=== PATIENT | female | born 1960 | race Caucasian/White ===

== ENCOUNTER 2016-06-02 11:18 | Emergency (ER) | payer OTHER ==
[~2016-06-02] VITALS: Ht 162.6 cm; Wt 136.7 kg
[~2016-06-02 11:18] MED LIST: ALBUAER2 INH; DIFL500T PO; FRS/40 PO; LSX20 PO; POTA20TA16 PO; SUMA50TA15 PO
[2016-06-02 11:21] VITALS: TEMP 36.8; Ht 162.6 cm; Wt 136.7 kg
[2016-06-02] MEDS ORDERED: PRVHFAIN INH (11:43)
[2016-06-02] MEDS ORDERED: LSX20 PO (11:43)
--- NOTE | 2016-06-02 12:08 | DIAGNOSTIC IMAGING REPORT ---
RIGHT KNEE 3 VIEWS, LEFT KNEE 3 VIEWS CLINICAL HISTORY: Bilateral knee pain. Fall. COMPARISON STUDY: None. FINDINGS: Mild anterior soft tissue swelling. No knee effusions. No fracture or dislocation within the right or left knee. Mild patellofemoral osteoarthritis bilaterally. Medial and lateral osteophytes within the left knee with mild cartilage space narrowing within the medial compartment of the left knee. This is consistent with degenerative change. IMPRESSION: No fracture or dislocation within the right or left knee. Bilateral knee osteoarthritis, left greater than right. Electronically signed by: Yony Diaz M.D. 06/02/2016 12:07 PM Dictated Date/Time: 06/02/2016 12:04 PM
[2016-06-02 12:51] VITALS: BP 157/106; PULSE 82; O2SAT 98
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
== END 2016-06-02 13:05 | disposition home or self-care (01) ==
LOC: C.EDB 11:21 → C.EDD 13:05
DX: S80.01XA Contusion of right knee, initial encounter (principal); S80.02XA Contusion of left knee, initial encounter; S40.021A Contusion of right upper arm, initial encounter; W01.0XXA Fall on same level from slipping, tripping and stumbling without subsequent striking against object, initial encounter; J45.909 Unspecified asthma, uncomplicated; Z98.890 Other specified postprocedural states

== ENCOUNTER → 2016-12-01 | Outpatient (CLI) | payer OTHER ==
[~2016-12-01] MED LIST changes: -ALBUAER2 INH; -DIFL500T PO; +PRVHFAIN INH
--- NOTE | 2016-12-02 12:43 | MAMMOGRAPHY REPORT ---
BILATERAL DIGITAL SCREENING MAMMOGRAM WITH CAD: 12/01/2016 CLINICAL HISTORY: Routine screening. TECHNIQUE: Current study was also evaluated with a Computer Aided Detection (CAD) system. Bilateral CC and MLO views were obtained. COMPARISON: Comparison is made to exams dated: 11/27/2015 mammogram, 11/25/2014 mammogram, 10/16/2013 ma mmogram, 08/22/2012 mammogram, 08/19/2011 mammogram, and 08/17/2010 mammogram - [facility] nter. BREAST COMPOSITION: The tissue of both breasts is almost entirely fatty. FINDINGS: No suspicious masses, calcifications, or areas of architectural distortion are noted in ei ther breast. There has been no significant interval change compared to prior exams. IMPRESSION: ACR BI-RADS CATEGORY 1: NEGATIVE There is no mammographic evidence of malignancy. A 1 year screening mammogram is recommended. The pa tient will receive written notification of the results. Approximately 10% of breast cancers are not detected with mammography. A negative mammographic report should not delay biopsy if a clinically suggestive mass is present. Madhavi Hunter M.D. ah/:12/01/2016 16:27:07 Log Feeder: Tim VASQUES(R)(M), [facility] letter sent: Normal 1/2 BI-RADS Code: ACR BI-RADS Category 1: Negative
== END | disposition home or self-care (01) ==
LOC: C.MAMM 15:53
PROVIDERS: ATTEND Family Medicine
DX: Z12.31 Encounter for screening mammogram for malignant neoplasm of breast (principal)

== ENCOUNTER 2023-10-07 10:37 | Inpatient (IN) ==
--- NOTE | 2023-10-07 10:54 | Emergency Department Note ---
Impression & Plan Precordial chest pain, Leukocytosis, Diaphoresis, SOB (shortness of breath) ED Provider Note NAME: BHAVYA LEONE AGE: 62 SEX: F : 1960 ARRIVES VIA: Ambulance INFORMANT: [Patient][ems, nursing] ED PROVIDER(S): [Kip Doherty MD] CHIEF COMPLAINT: Chest pain HISTORY OF PRESENT ILLNESS: The patient is a 62-year-old female with no known coronary disease. The patient does not have a history of hypertension, high cholesterol or diabetes. She is not a smoker. Her mother had some heart disease diagnosed in her 70s. The patient states that she was driving about an hour and a half ago when she developed pressure and discomfort across the mid chest. No radiation of pain. She was sweaty and nauseated and felt a bit short of breath. Patient stopped her car and she rested for a bit and things seemed to improve. She states that when she got up and started moving around, the pain returned. Eventually, EMS was called. The patient was given 4 baby aspirin orally as well as 1 nitroglycerin tablet. She feels improved although she still has some discomfort. In the last few weeks, there has been no exertional chest pain or dyspnea. PMHx/PSHx/Social Hx: See Below PHYSICAL EXAM: GENERAL: Patient is in no acute distress. HEENT: No acute trauma, normocephalic atraumatic, mucous membranes moist, no nasal congestion. NECK: No stridor, no adenopathy, no meningismus, trachea is midline. LUNGS: Clear to auscultation bilaterally, no wheeze, no rhonchi, breath sounds equal. HEART: 1/6 systolic murmur, regular rate and rhythm. Chest: Tender to the mid lower sternal chest wall. ABDOMEN: Soft, nontender, no peritonitis. Obese. EXTREMITIES: No cyanosis, full range of motion of all the joints without pain or difficulty. Mild bilateral pedal edema. NEUROLOGIC: Oriented x 3, no acute motor or sensory deficits, no focal weakness. SKIN: No jaundice, no diaphoresis. DIFFERENTIAL DIAGNOSIS: OH, angina, aortic dissection, PE, musculoskeletal pain, reflux, biliary colic, among others. EMERGENCY DEPARTMENT PROCEDURES: MEDICAL DECISION MAKING: There is a mild leukocytosis, this could be consistent with infection or just the stress of her presentation. There is a normal hemoglobin. Platelet count very slightly elevated. No coagulopathy. No renal failure or significant electrolyte abnormality. No evidence for pancreatitis. ECG shows a normal sinus rhythm, no ischemia. Cardiac enzyme testing x 2 is not consistent with acute cardiac injury. Chest x-ray does not show mediastinal widening, pneumonia or pneumothorax. On exam, the patient seemed comfortable. She was tender to palpate the lower sternal chest wall. The patient had already received aspirin, thus, no additional aspirin was given. The patient was given 1 inch of nitroglycerin paste. This did not help her pain and it was eventually discontinued. I did call and speak with cardiology. Given the circumstances, given her history of present illness, a hospital stay and further cardiac workup was felt warranted. I spoke with the patient and case management, the on-call hospitalist was consulted. Further cardiac workup is in order. Prior/Outside records/notes reviewed: Today's EMS notes describing her presentation and transport to this hospital. ECG per my interpretation: Indication was chest pain. The ECG shows a normal sinus rhythm with a rate of 81. There is no acute ST elevation, no PVCs. The QTc is 436. Continuous Cardiac Monitoring per my interpretation: An order was placed for continuous cardiac monitoring. The monitor shows a rate of 85 with normal sinus rhythm. Imaging/x-ray results per my interpretation: Chest x-ray does not show mediastinal widening, pneumonia or pneumothorax. The film looks similar to previous films. Chronic Medical/Social conditions affecting care: Care/Management discussed with: Cardiology-Dr. Alvarado. Case management, the on-call hospitalist. Level of care consideration(s): After review of the information above and other included data: --I believe the patient requires escalation of care to admission DISPOSITION: Admission Past Med/Surg History Problem List (Updated 10/07/23 @ 16:16 by Kip Doherty MD) SOB (shortness of breath) (Acute) Diaphoresis (Acute) Leukocytosis (Acute) Precordial chest pain (Acute) Contusion of left knee (Acute) Contusion of right arm (Acute) Contusion of right knee (Acute) Fall (Acute) Work related injury (Acute) Pre-op examination Encounter for pre-operative examination Cholelithiasis with chronic cholecystitis Medical History Osteoarthritis Morbid obesity with BMI of 45.0-49.9, adult Overactive bladder GERD (gastroesophageal reflux disease) Migraine hx Cardiac murmur No 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 care marketing specialist> has had 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 per patient Per most recent PCP notes- no murmur noted ECHO from 2010 showed no significant valve issues Surgical History H/O arthroscopy of left knee H/O repair of left rotator cuff x2-- History of anesthesia reaction severe headaches History of cholecystectomy History of colonoscopy History of endometrial ablation History of esophagogastroduodenoscopy (EGD) History of tonsillectomy History of tooth extraction wisdom teeth Nausea and vomiting after administration of anesthetic agent Family History Grandmother Diabetes Grandfather Diabetes Other Cancer Gallbladder disease Seizure Social History Smoking Status: Never smoker Second Hand Exposure: No; Do You Dip or Chew Tobacco: No; Hx Alcohol Use: Yes Alcohol type: wine Hx Substance Use: No Preferred Language: Slovenian Communication Ability: Effective Fence Setter Required: No Beliefs That Will Affect Care: None marital status: Single Current Living Situation: Spouse Current Living Situation Comment: WITH [employer] current occupational status: employed Feels Safe at Home: Yes Assistive Devices: Glasses Allergies Allergies Allergy/AdvReac Type Severity Reaction Status Date / Time Iodinated Contrast Media Allergy Intermediate HIVES AND Verified 10/07/23 12:53 SWELLING Home Meds Home Medications Medication Instructions Recorded Confirmed acyclovir 5 % topical ointment 1 dose topical DIRECTED PRN 12/29/17 10/07/23 Cold Sores valacyclovir 1 gram tablet 2,000 mg PO Q12H PRN Cold Sores 12/29/17 10/07/23 (Valtrex) multivit-iron 18 mg-folic acid 400 1 tab PO QAM 01/03/19 10/07/23 mcg-calcium 500 mg-minerals tablet (Women's One Daily) silver sulfadiazine 1 % topical 1 applic topical DAILY PRN Skin 10/07/23 10/07/23 cream Irritation Results & Data (ED) Vital Signs Vital Signs - 24 hr 10/07/23 10:37 10/07/23 10:49 10/07/23 10:50 Temperature 36.7 C Temperature Source Oral Pulse Rate 81 84 84 Pulse Rate from SpO2 Sensor Pulse Rhythm Regular Respiratory Rate 21 21 Respiratory Effort / Characteristics Non-Labored Respiratory Depth Normal Respiratory Pattern Regular Blood Pressure 139/65 Blood Pressure Mean 89 Pulse Oximetry 96 96 Oxygen Delivery Method Room Air Room Air Sepsis Recent Fever Within 48 Hours No Sepsis New/Unexplained Change in Mental Status N/A Sepsis Action Taken by Nursing No Action Required 10/07/23 11:00 10/07/23 12:09 10/07/23 12:32 Temperature Temperature Source Pulse Rate 79 76 74 Pulse Rate from SpO2 Sensor 78 76 Pulse Rhythm Respiratory Rate 19 18 18 Respiratory Effort / Characteristics Respiratory Depth Respiratory Pattern Blood Pressure 139/65 124/64 Blood Pressure Mean 89 84 Pulse Oximetry 97 96 98 Oxygen Delivery Method Sepsis Recent Fever Within 48 Hours Sepsis New/Unexplained Change in Mental Status Sepsis Action Taken by Nursing 10/07/23 12:32 10/07/23 12:48 10/07/23 13:00 Temperature Temperature Source Pulse Rate 72 71 Pulse Rate from SpO2 Sensor 72 71 Pulse Rhythm Respiratory Rate 22 17 Respiratory Effort / Characteristics Respiratory Depth Respiratory Pattern Blood Pressure 124/64 Blood Pressure Mean 87 Pulse Oximetry 97 97 Oxygen Delivery Method Sepsis Recent Fever Within 48 Hours Sepsis New/Unexplained Change in Mental Status Sepsis Action Taken by Nursing 10/07/23 13:33 10/07/23 14:09 10/07/23 14:55 Temperature Temperature Source Pulse Rate 69 72 65 Pulse Rate from SpO2 Sensor 69 65 Pulse Rhythm Respiratory Rate 19 19 16 Respiratory Effort / Characteristics Respiratory Depth Respiratory Pattern Blood Pressure 128/101 H Blood Pressure Mean 110 Pulse Oximetry 98 98 98 Oxygen Delivery Method Sepsis Recent Fever Within 48 Hours Sepsis New/Unexplained Change in Mental Status Sepsis Action Taken by Nursing 10/07/23 15:00 10/07/23 15:03 10/07/23 15:36 Temperature Temperature Source Pulse Rate 68 69 69 Pulse Rate from SpO2 Sensor 69 69 Pulse Rhythm Respiratory Rate 17 19 Respiratory Effort / Characteristics Respiratory Depth Respiratory Pattern Blood Pressure Blood Pressure Mean Pulse Oximetry 99 98 Oxygen Delivery Method Sepsis Recent Fever Within 48 Hours Sepsis New/Unexplained Change in Mental Status Sepsis Action Taken by Nursing 10/07/23 16:03 Temperature Temperature Source Pulse Rate 70 Pulse Rate from SpO2 Sensor 71 Pulse Rhythm Respiratory Rate 19 Respiratory Effort / Characteristics Respiratory Depth Respiratory Pattern Blood Pressure Blood Pressure Mean Pulse Oximetry 99 Oxygen Delivery Method Sepsis Recent Fever Within 48 Hours Sepsis New/Unexplained Change in Mental Status Sepsis Action Taken by Shelter Medications Current Medication List: was personally reviewed by me Laboratory Data Attestation: I reviewed the patient's lab results. 10/07/23 11:21 10/07/23 11:21 Lab Results 10/07/23 10/07/23 Range/Units 11:21 14:50 WBC 12.25 H (4.8-10.8) K/ul RBC 4.42 (4.20-5.40) M/uL Hgb 11.5 L (12.0-16.0) g/dl Hct 37.4 (37.0-47.0) % MCV 84.6 (80.0-100.0) fL MCH 26.0 (25.0-34.0) pg MCHC 30.7 L (32.0-36.0) g/dL RDW Std Deviation 48.0 H (36.4-46.3) fL RDW Coeff of Price 15.6 H (11.5-14.5) % Plt Count 404 H (130-400) K/uL MPV 9.4 (9.4-12.4) fL Immature Gran % (Auto) 0.3 % Neut % (Auto) 79.1 % Lymph % (Auto) 10.8 % [place] % (Auto) 6.3 % Eos % (Auto) 2.7 % Baso % (Auto) 0.8 % Neut # (Auto) 9.69 H (1.40-6.50) K/uL Lymph # (Auto) 1.32 (1.20-3.40) K/uL [place] # (Auto) 0.77 H (0.11-0.59) K/uL Eos # (Auto) 0.33 (0.00-0.50) K/uL Baso # (Auto) 0.10 (0.00-0.20) K/uL Immature Gran # (Auto) 0.04 (0.01-0.20) K/uL PT 10.3 (9.0-12.0) Seconds INR 0.9 (0.9-1.1) APTT 26 (21-31) Seconds PTT Ratio 1.0 Sodium 140 (136-145) mmol/L Potassium 4.5 (3.5-5.1) mmol/L Chloride 108 H (98-107) mmol/L Carbon Dioxide 28 (21-32) mmol/L Anion Gap 4 (3-11) BUN 12 (6-23) mg/dl Creatinine 0.50 L (0.6-1.2) mg/dl Est Cr Clr Drug Dosing 159.9 ml/min Est GFR ( Amer) 119.4 ml/min Est GFR (Non-Af Amer) 103.0 ml/min BUN/Creatinine Ratio 24.0 H (10-20) Glucose 92 (70-99(Fasting)) mg/dl Calcium 8.8 (8.6-10.3) mg/dl Magnesium 1.9 (1.7-2.4) mg/dl Total Bilirubin 0.4 (0.2-1.0) mg/dl AST 21 (13-39) U/L ALT 14 (7-52) U/L Alkaline Phosphatase 67 (34-104) U/L Troponin I High Sens < 2.3 2.5 (0-14) pg/ml Total Protein 6.7 (6.0-8.3) gm/dl Albumin 3.9 (3.4-5.0) gm/dl Globulin 2.8 (2.5-4.0) gm/dl Albumin/Globulin Ratio 1.4 (0.9-2) Lipase 9 L (11-82) U/L Administered Medications Discontinued Medications Nitroglycerin (Nitroglycerin 2% Ointment 30gm Tube) 1 inch EXT NOW STA Stop: 10/07/23 10:51 Last Admin: 10/07/23 11:13 Dose: 1 inch Documented By: [facility] Imaging Data Radiologist's Impression: Chest X-Ray 10/07/23 10:41 SINGLE VIEW CHEST CLINICAL HISTORY: Atypical chest pain. FINDINGS: An AP, portable, upright chest radiograph is compared to study dated 08/21/2011 and correlated with chest CT dated 08/22/2011. The heart is enlarged. There is prominence of the pulmonary vasculature. Atelectasis is seen at the lung bases. The lungs and pleural spaces are otherwise clear. No pneumothorax is seen. The skeletal structures are osteopenic. The bony thorax is grossly intact. IMPRESSION: 1. Cardiomegaly with prominence of the pulmonary vasculature. Correlate clinically for evidence of fluid overload/congestive change. 2. No airspace consolidation or large pleural effusion is identified. ACT 112: Negative or not required by law. Electronically signed by: Kip Pearl M.D. 10/07/2023 11:05 AM Discharge Plan Visit Data Chief Complaint: Chest Pain Stated Complaint: CHEST PAIN ED Provider: Kip Doherty Discharge Problem: Precordial chest pain, Leukocytosis, Diaphoresis, SOB (shortness of breath) Patient Disposition: Admitted As Inpatient Condition: Good Forms Stand Alone Forms: [employer] Prescriptions Prescriptions: No Action valacyclovir [Valtrex] 1 gram Tablet 2,000 mg PO Q12H PRN (Reason: Cold Sores) acyclovir 5 % Ointment 1 dose Topical DIRECTED PRN (Reason: Cold Sores) Women's One Daily 18 mg iron-400 mcg-500 mg Ca Tablet 1 tab PO QAM silver sulfadiazine 1 % cream 1 applic TOPICAL DAILY PRN (Reason: Skin Irritation) Referrals Referrals: Isha Anderson PA-C [Outside Practitioners] - Discharge Problem: Leukocytosis Qualifiers: Leukocytosis type: unspecified Qualified Code(s): D72.829 - Elevated white blood cell count, unspecified
--- NOTE | 2023-10-07 11:06 | XRay Report ---
SINGLE VIEW CHEST CLINICAL HISTORY: Atypical chest pain. FINDINGS: An AP, portable, upright chest radiograph is compared to study dated 08/21/2011 and correlat ed with chest CT dated 08/22/2011. The heart is enlarged. There is prominence of the pulmonary vascula ture. Atelectasis is seen at the lung bases. The lungs and pleural spaces are otherwise clear. No pne umothorax is seen. The skeletal structures are osteopenic. The bony thorax is grossly intact. IMPRESSION: 1. Cardiomegaly with prominence of the pulmonary vasculature. Correlate clinically for evidence of fl uid overload/congestive change. 2. No airspace consolidation or large pleural effusion is identified. ACT 112: Negative or not required by law. Electronically signed by: Kip Pearl M.D. 10/07/2023 11:05 AM
[2023-10-07] MEDS: NITROGLYCERIN 2% OINTMENT 30GM TUBE EXT STA (11:13)
[2023-10-07 11:46] LABS: Basophils % (auto) 0.8 %; Eosinophils # (auto) 0.33 K/uL (0.00-0.50); Eosinophils % (auto) 2.7 %; Hematocrit (blood only) 37.4 % (37.0-47.0); Hemoglobin 11.5 g/dl (12.0-16.0); Immature Granulocytes # (auto) 0.04 K/uL (0.01-0.20); Immature Granulocytes % (auto) 0.3 %; Lymphocytes # (auto) 1.32 K/uL (1.20-3.40); Lymphocytes % (auto) 10.8 %; Mean Corpuscular Hgb Conc 30.7 g/dL (32.0-36.0); Mean Corpuscular Volume 84.6 fL (80.0-100.0); Mean Platelet Volume 9.4 fL (9.4-12.4); Monocytes # (auto) 0.77 K/uL (0.11-0.59); Monocytes % (auto) 6.3 %; Neutrophils # (auto) 9.69 K/uL (1.40-6.50); Neutrophils % (auto) 79.1 %; Platelet Count 404 K/uL (130-400); RDW Coefficient of Variation 15.6 % (11.5-14.5); Red Blood Count 4.42 M/uL (4.20-5.40); White Blood Count 12.25 K/ul (4.8-10.8)
[2023-10-07 12:05] LABS: Alanine Aminotransferase 14 U/L (7-52); Albumin Globulin Ratio 1.4 (0.9-2); Albumin Level 3.9 gm/dl (3.4-5.0); Alkaline Phosphatase 67 U/L (34-104); Anion Gap 4 (3-11); Aspartate Aminotransferase 21 U/L (13-39); Bilirubin,Total 0.4 mg/dl (0.2-1.0); Blood Urea Nitrogen 12 mg/dl (6-23); Calcium 8.8 mg/dl (8.6-10.3); Carbon Dioxide 28 mmol/L (21-32); Chloride 108 mmol/L (98-107); Creatinine Clr Calc Pharmacy 159.9 ml/min; Est GFR (African American) 119.4 ml/min; Globulin 2.8 gm/dl (2.5-4.0); Glucose 92 mg/dl (70-99(Fasting)); Lipase 9 U/L (11-82); Magnesium 1.9 mg/dl (1.7-2.4); Potassium 4.5 mmol/L (3.5-5.1); Sodium 140 mmol/L (136-145); Total Protein 6.7 gm/dl (6.0-8.3)
[2023-10-07 12:10] LABS: Troponin I High Sensitivity < 2.3 pg/ml (0-14)
[2023-10-07 12:22] LABS: INR 0.9 (0.9-1.1); Partial Thromboplastin Time 26 Seconds (21-31); Prothrombin Time 10.3 Seconds (9.0-12.0)
--- NOTE | 2023-10-07 12:55 | Electrocardiogram Report ---
Test Reason : Blood Pressure : / mmHG Vent. Rate : 081 BPM Atrial Rate : 081 BPM P-R Int : 148 ms QRS Dur : 082 ms QT Int : 376 ms P-R-T Axes : -05 040 031 degrees QTc Int : 436 ms Normal sinus rhythm Normal ECG When compared with ECG of 15-AUG-2020 06:13, No significant change was found Confirmed by Elder Perez ([id number]) on 10/07/2023 12:54:47 PM Referred By: Confirmed By:Andi Perez
--- NOTE | 2023-10-07 17:36 | History & Physical Report ---
Date of Service October 07, 2023 Assessment & Plan (1) Precordial chest pain: Plan: Admit to telemetry Patient presenting for evaluation of chest pain and diaphoresis. Patient received 1 spray of nitroglycerin and route to the ED and reports resolution of her symptoms. Risk factors: Obesity HS troponin negative x 2, EKG without acute ST changes Will check D-dimer Resting echo Cardiology consult (ED was in contact with Dr. 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 Dominguez. I spent a total of 75 minutes coordinating, documenting, and providing care for this patient excluding time spent in the performance of separately billed services. This included personally reviewing all current laboratories and imaging studies, medication reconciliation, outpatient chart review, and discussion with specialists. Plan Attending Addendum: Case reviewed with the advanced practitioner. I have personally performed a history and physical examination on the patient. I have reviewed the advanced practitioner's documentation on the date of service referenced in note, and I agree with, and take responsibility for the plan of care. please refer to her notes for full details patient seen and examined, records reviewed by myself as well on exam, patient seen resting in bed, comfortable chest pain resolved no other symptoms VS noted and reviewed oriented x3, not in distress, speaks in sentences with no effort nor accessory muscle use normal rate, regular rhythm, no murmurs clear breath sounds bilaterally non distended, soft, nontender no bipedal edema, erythema, warmth no neuro deficits all labs, imaging noted and reviewed ASSESSMENT AND PLAN EPISODE OF CHEST PAIN r/o ACUTE CORONARY SYNDROME resolved with Nitro while en route to the ER also given given ASA 324mg trop x2 negative EKG no acute ischemia echo: pending D dimer negative Cardiology consulted other diagnoses and plan of care as per advanced practitioner's notes Minh Dominguez MD History of Present Illness Chief Complaint: Chest pain Primary Care Provider: Gregorio Montoya MD 62-year-old female with PMH obesity, osteoarthritis, primary malignant neoplasm of parotid gland s/p resection, and other problems listed below who presents to the ED for evaluation of chest pain. History is obtained from the patient and review outpatient PCP records. Patient states that she was driving in her car earlier today whenever she developed a midsternal chest pain. Patient describes the feeling as a "bubble" in her chest that would not go away. She reports associated diaphoresis. When patient reached her location and parked her car, she reports that the pain had mostly subsided. She then got out of her car and was getting her chair out of the trunk when the pain returned. 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 When she arrived at the EMT tent, her coworkers noted that she did not look well. She was transported to the ED via ambulance. En route to the ED, patient received 4 baby aspirin and 1 spray of nitroglycerin. Patient states that the nitroglycerin resolved her pain. She reports a few minor episodes of chest discomfort since arriving to the ED but is currently chest pain-free. She denies associated shortness of breath or nausea. States she otherwise has been feeling well recently. No other recent illnesses, fevers, chills. She denies abdominal pain, vomiting, diarrhea. No urinary symptoms. In the ED, patient is hemodynamically stable. HS troponin negative x 2, EKG without acute ST changes. 1 inch of nitroglycerin paste was placed. Allergies Allergy/AdvReac Type Severity Reaction Status Date / Time Iodinated Contrast Media Allergy Intermediate HIVES AND Verified 10/07/23 12:53 SWELLING Home Medications Medication Instructions Recorded Confirmed Type acyclovir 5 % topical ointment 1 dose topical DIRECTED PRN 12/29/17 10/07/23 History Cold Sores valacyclovir 1 gram tablet 2,000 mg PO Q12H PRN Cold Sores 12/29/17 10/07/23 History (Valtrex) multivit-iron 18 mg-folic acid 400 1 tab PO QAM 01/03/19 10/07/23 History mcg-calcium 500 mg-minerals tablet (Women's One Daily) furosemide 20 mg tablet 40 mg PO DAILY PRN Edema 10/07/23 10/07/23 History potassium chloride 10 mEq 10 meq PO DAILY PRN with Lasix 10/07/23 10/07/23 History tablet,extended release silver sulfadiazine 1 % topical 1 applic topical DAILY PRN Skin 10/07/23 10/07/23 History cream Irritation Past Med/Surg History Problem List (Updated 10/07/23 @ 17:31 by CORTEZ Teran) Precordial chest pain (Acute) Medical History (Updated 10/07/23 @ 17:31 by CORTEZ Teran) Primary malignant neoplasm of parotid gland Osteoarthritis Morbid obesity with BMI of 45.0-49.9, adult Overactive bladder GERD (gastroesophageal reflux disease) Migraine hx Cardiac murmur 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 Per most recent PCP notes- no murmur noted ECHO from 2010 showed no significant valve issues Surgical History History of cholecystectomy H/O repair of left rotator cuff x2-- History of anesthesia reaction severe headaches Nausea and vomiting after administration of anesthetic agent History of endometrial ablation H/O arthroscopy of left knee History of colonoscopy History of esophagogastroduodenoscopy (EGD) History of tooth extraction wisdom teeth History of tonsillectomy Family History Grandmother Diabetes Grandfather Diabetes Other Cancer Gallbladder disease Seizure Social History Smoking Status: Never smoker Second Hand Exposure: No; Do You Dip or Chew Tobacco: No; Tobacco Cessation Education Requested by Patient: No Hx Alcohol Use: No Hx Substance Use: No Preferred Language: Cantonese Afghan Communication Ability: Effective Specification Manager Required: No Beliefs That Will Affect Care: None marital status: Single Current Living Situation: Significant Other Current Living Situation Comment: WITH [employer] current occupational status: employed Feels Safe at Home: Yes Safety Concerns: Feels Safe At This Time Assistive Devices: CPAP Review of Systems Review of Systems: ROS per HPI, all other systems reviewed and negative Physical Exam Constitutional: WD/WN, vitals as above + obese; no acute distress Eyes: PERRL, conjunctivae normal, anicteric sclerae ENMT: external ear and nose normal, oropharynx normal Respiratory: normal respiratory effort, lungs clear to auscultation Cardiovascular: Rate/Rhythm: regular rate and regular rhythm Vessels: no rmal peripheral pulses Extremities: + edema (+1 edema BLE) Gastrointestinal (Abdomen): normal bowel sounds, soft, nontender, no hepatosplenomegaly Musculoskeletal: no cyanosis or clubbing, extremities motor strength 5/5 Skin: no rashes, warm and dry Neurologic: PERRL, EOMI, accommodation nl, no face palsy, no dysarthria Psychiatric: A+Ox3, euthymic affect Results & Data Results & Data Vital Signs (Past 12 Hours) Vital Signs Temp Pulse Pulse Resp BP BP Pulse Ox 10/07/23 16:37 90 20 138/79 98 10/07/23 16:03 70 19 99 10/07/23 15:36 69 19 98 10/07/23 15:03 69 17 99 10/07/23 15:00 68 10/07/23 14:55 65 16 128/101 H 98 10/07/23 14:09 72 19 98 10/07/23 13:33 69 19 98 10/07/23 13:00 71 17 97 10/07/23 12:48 72 22 97 10/07/23 12:32 124/64 10/07/23 12:32 74 18 124/64 98 10/07/23 12:09 76 18 96 10/07/23 11:00 79 19 139/65 97 10/07/23 10:50 84 21 96 10/07/23 10:49 84 10/07/23 10:37 36.7 C 81 21 139/65 96 O2 Del Method 10/07/23 16:37 Room Air 10/07/23 16:03 10/07/23 15:36 10/07/23 15:03 10/07/23 15:00 10/07/23 14:55 10/07/23 14:09 10/07/23 13:33 10/07/23 13:00 10/07/23 12:48 10/07/23 12:32 10/07/23 12:32 10/07/23 12:09 10/07/23 11:00 10/07/23 10:50 Room Air 10/07/23 10:49 10/07/23 10:37 Room Air Laboratory Results Short CBC 10/07/23 Range/Units 11:21 WBC 12.25 H (4.8-10.8) K/ul Hgb 11.5 L (12.0-16.0) g/dl Hct 37.4 (37.0-47.0) % Plt Count 404 H (130-400) K/uL BMP 10/07/23 11:21 Sodium 140 Potassium 4.5 Chloride 108 H Carbon Dioxide 28 BUN 12 Creatinine 0.50 L Glucose 92 Calcium 8.8 Liver Function 10/07/23 Range/Units 11:21 Total Bilirubin 0.4 (0.2-1.0) mg/dl AST 21 (13-39) U/L ALT 14 (7-52) U/L Alkaline Phosphatase 67 (34-104) U/L Albumin 3.9 (3.4-5.0) gm/dl Diagnostic Findings Chest X-Ray 10/07/23 10:41 SINGLE VIEW CHEST CLINICAL HISTORY: Atypical chest pain. FINDINGS: An AP, portable, upright chest radiograph is compared to study dated 08/21/2011 and correlated with chest CT dated 08/22/2011. The heart is enlarged. There is prominence of the pulmonary vasculature. Atelectasis is seen at the lung bases. The lungs and pleural spaces are otherwise clear. No pneumothorax is seen. The skeletal structures are osteopenic. The bony thorax is grossly intact. IMPRESSION: 1. Cardiomegaly with prominence of the pulmonary vasculature. Correlate clinically for evidence of fluid overload/congestive change. 2. No airspace consolidation or large pleural effusion is identified. ACT 112: Negative or not required by law. Electronically signed by: Kip Pearl M.D. 10/07/2023 11:05 AM Code Status & VTE Plan VTE Prophylaxis Plan VTE Prophylaxis will be ordered: Yes
[2023-10-07] MEDS ORDERED: ACETAMINOPHEN 325 MG TAB PO PRN (17:45)
[2023-10-07 18:05] LABS: D Dimer 410 ug/L FEU (0-500)
[2023-10-07] MEDS: ENOXAPARIN INJ 40 MG/0.4 ML SYR SQ SCH (19:01)
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
[2023-10-08 04:17] LABS: Hematocrit (blood only) 38.4 % (37.0-47.0); Hemoglobin 11.7 g/dl (12.0-16.0); Mean Corpuscular Hemoglobin 25.7 pg (25.0-34.0); Mean Corpuscular Hgb Conc 30.5 g/dL (32.0-36.0); Mean Corpuscular Volume 84.4 fL (80.0-100.0); Mean Platelet Volume 9.3 fL (9.4-12.4); Platelet Count 460 K/uL (130-400); RDW Coefficient of Variation 15.6 % (11.5-14.5); RDW Standard Deviation 48.1 fL (36.4-46.3); Red Blood Count 4.55 M/uL (4.20-5.40); White Blood Count 9.88 K/ul (4.8-10.8)
[2023-10-08 04:35] LABS: BUN Creatinine Ratio 20.3 (10-20); Calcium 9.1 mg/dl (8.6-10.3); Est GFR (African American) 113.1 ml/min; Est GFR (Non-African American) 97.5 ml/min
[2023-10-08 04:43] LABS: Troponin I High Sensitivity 2.9 pg/ml (0-14)
[2023-10-08] MEDS: ATORVASTATIN 20 MG TAB PO SCH (08:04)
[2023-10-08] MEDS: ASPIRIN 81 MG ECTAB PO SCH (08:04)
[2023-10-08] MEDS: METOPROLOL TARTRATE 25 MG TAB PO SCH (08:04)
--- NOTE | 2023-10-08 10:55 | Cardiology Consultation ---
Date of Consultation October 08, 2023 Assessment & Plan (1) Precordial chest pain: Plan 62 yo woman presents with nonexertional chest pain. Troponin negative. EKG without acute ischemic changes. - echo read pending - continue aspirin, atorvastatin, metoprolol - monitor blood pressure, currently needs better blood pressure control - continue to monitor on telemetry - pending echo results, could consider further ischemic workup as an outpatient with nuclear stress test, unable to perform exercise stress echo due to orthopedic limitations - follow up with outpatient cardiology Case discussed with supervising physician, further recommendations per Dr. Maddox. I spent a total of 35 minutes on the date of service in preparation, delivery, and documentation of the care provided to this patient excluding any time spent in the performance of separately billed services. This visit was a split-shared visit with the substantial portion of the decision making performed by the supervising ecology professor/billing provider. Supervising Physician Co-Signing Physician Notes I have personally performed a history and physical examination on the patient. I have reviewed the advance practitioner's documentation, and I agree with, and take responsibility for the plan of care. I spent a total of 40 minutes on the date of service in preparation, delivery, and documentation of the care provided to this patient, excluding any time spent in the performance of separately billed services. 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 Patient states that she felt a chest pressure that was nonexertional nonradiating lasted for few minutes and then resolved. She then decided to go to work and had a second episode of chest pain her coworkers checked her vitals and said her systolic blood pressure was elevated 180 and she presented to the emergency room. She states her blood pressure usually is well-controlled At home. She has not had any recurrence of chest pain. Her troponins were negative in the emergency room and her EKG showed sinus rhythm with no acute ischemic changes. Echocardiogram pending and will review images once available. Would recommend stress testing however patient states that she would like for this to be done as an inpatient. Patient unable to exercise due to bilateral knee pain. Dobutamine stress echo not ideal due to her tentative blood pressure status. She denies any history of asthma/COPD or seizures. Will recommend a Lexiscan nuclear stress test. Keep patient n.p.o. after midnight on Tuesday for a stress test on Tuesday. History of Present Illness Reason for Consultation: Chest pain Requesting Physician: CORTEZ Teran Attending Physician: Caden Epperson MD History of Present Illness 62 year old female with past medical history of parotid gland carcinoma s/p resection, RIC, who presents with chest pain. States she was driving in the car when she had sudden onset of midsternal chest pain, did not radiate. [place] sharp and burning, describes it as a bubble in her chest that would not go away. She reports associated diaphoresis. Pain eased a little, but when she went to get a chair out of her trunk the chest pain returned. She works as EMT and when she arrived at the EMT tent, her coworkers noted that she did not look well. States blood pressure was elevated when they checked it. She was transported to the ED via ambulance. En route to the ED, patient received 4 baby aspirin and 1 spray of nitroglycerin. Pain resolved by the time she got to ED. Troponin negative. EKG with no acute ischemic changes. On evaluation today, states she is feeling better. No recurrence of chest pain or diaphoresis. Denies shortness of breath, edema. States she was diagnosed with mitral valve prolapse by dentist as he heard a murmur, however on chart review echo from 2021 with no mitral valve disease. States she has episodes of heart racing at times that comes and goes, watch notifies her that her heart rate is high. Did not feel that her heart was racing during chest pain. Denies recent illness. Nonsmoker. Denies alcohol, illicit drug use. Family history positive for mother with Takotsubo's after of son, no known family history of sudden cardiac . Of note, patient had parotid gland tumor removal 07/26/23, pathology with acinic cell carcinoma, follows with oral surgery, postop had drainage, swelling, placed on abx, scheduled for MRI. Allergies Allergy/AdvReac Type Severity Reaction Status Date / Time Iodinated Contrast Media Allergy Intermediate HIVES AND Verified 10/07/23 12:53 SWELLING Home Medications Medication Instructions Recorded Confirmed Type acyclovir 5 % topical ointment 1 dose topical DIRECTED PRN 12/29/17 10/07/23 History Cold Sores valacyclovir 1 gram tablet 2,000 mg PO Q12H PRN Cold Sores 12/29/17 10/07/23 History (Valtrex) multivit-iron 18 mg-folic acid 400 1 tab PO QAM 01/03/19 10/07/23 History mcg-calcium 500 mg-minerals tablet (Women's One Daily) furosemide 20 mg tablet 40 mg PO DAILY PRN Edema 10/07/23 10/07/23 History potassium chloride 10 mEq 10 meq PO DAILY PRN with Lasix 10/07/23 10/07/23 History tablet,extended release silver sulfadiazine 1 % topical 1 applic topical DAILY PRN Skin 10/07/23 10/07/23 History cream Irritation Patient History Medical History Primary malignant neoplasm of parotid gland Osteoarthritis Morbid obesity with BMI of 45.0-49.9, adult Overactive bladder GERD (gastroesophageal reflux disease) Migraine hx Cardiac murmur 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 Per most recent PCP notes- no murmur noted ECHO from 2010 showed no significant valve issues Surgical History History of cholecystectomy H/O repair of left rotator cuff x2-- History of anesthesia reaction severe headaches Nausea and vomiting after administration of anesthetic agent History of endometrial ablation H/O arthroscopy of left knee History of colonoscopy History of esophagogastroduodenoscopy (EGD) History of tooth extraction wisdom teeth History of tonsillectomy Family History Grandmother Diabetes Grandfather Diabetes Other Cancer Gallbladder disease Seizure Social History Smoking Status: Never smoker Second Hand Exposure: No; Do You Dip or Chew Tobacco: No; Tobacco Cessation Education Requested by Patient: No Hx Alcohol Use: No Hx Substance Use: No Preferred Language: Cantonese Cymro Communication Ability: Effective Corset Maker Required: No Beliefs That Will Affect Care: None marital status: Single Current Living Situation: Significant Other Current Living Situation Comment: WITH [employer] current occupational status: employed Feels Safe at Home: Yes Safety Concerns: Feels Safe At This Time Assistive Devices: CPAP Review of Systems Review of Systems: CONSTITUTIONAL: No change in weight, No weakness, No fatigue and No fevers, No sweats or chills. PULMONARY: No cough, sputum, or hemoptysis, No wheezing, No shortness of breath and No recent change in breathing. CARDIOVASCULAR: + chest pain, No dyspnea on exertion, No edema, No palpitations and No syncope. GASTROINTESTINAL: No abdominal pain, No change in bowel habits, No significant heartburn, No nausea, No vomiting, No diarrhea, No constipation, No blood in stools or black tarry stools. No dysphagia. HEMATOLOGIC: No abnormal bleeding and No bruising. NEUROLOGICAL: Normal balance, No headaches and No weakness. Physical Exam Physical Exam: General: No acute distress. A+Ox3. HEENT: Normocephalic. Atraumatic. PERRL. EOMI. Conjunctiva and sclera clear. NECK: No carotid bruits. No JVD. Carotid upstrokes are brisk. Heart: RRR. S1 and S2 noted. No murmur. No rubs or gallops. PMI non displaced. Lungs: Clear to auscultation. No wheezes. No rhonchi. No rales. Abdomen: Normal bowel sounds. Soft. Nontender. No masses or organomegaly. No abdominal bruits. Extremities: No edema. No clubbing or cyanosis. Pulses: radial=2/4, posterior tibial=2/4, dorsalis pedis = 2/4. NEURO: No focal deficits. PSYCH: Appropriate affect and insight. Results & Data Vital Signs (Past 12 Hours) Vital Signs Temp Pulse Pulse Resp BP Pulse Ox O2 Del Method 10/08/23 07:31 36.4 C L 76 19 163/80 H 98 Room Air 10/08/23 05:50 72 10/08/23 03:22 36.5 C 73 20 118/80 95 Room Air Laboratory Results Cardiac Enzymes 10/07/23 10/07/23 10/07/23 Range/Units 11:21 14:50 21:00 AST 21 (13-39) U/L Troponin I High Sens < 2.3 2.5 3.7 (0-14) pg/ml 10/08/23 Range/Units 03:30 AST (13-39) U/L Troponin I High Sens 2.9 (0-14) pg/ml Coagulation 10/07/23 Range/Units 11:21 PT 10.3 (9.0-12.0) Seconds APTT 26 (21-31) Seconds CBC 10/07/23 10/08/23 Range/Units 11: 03:30 WBC 12.25 H 9.88 (4.8-10.8) K/ul RBC 4.42 4.55 (4.20-5.40) M/uL Hgb 11.5 L 11.7 L (12.0-16.0) g/dl Hct 37.4 38.4 (37.0-47.0) % Plt Count 404 H 460 H (130-400) K/uL Neut # (Auto) 9.69 H (1.40-6.50) K/uL Lymph # (Auto) 1.32 (1.20-3.40) K/uL [place] # (Auto) 0.77 H (0.11-0.59) K/uL Eos # (Auto) 0.33 (0.00-0.50) K/uL Baso # (Auto) 0.10 (0.00-0.20) K/uL Comprehensive Metabolic Panel 10/07/23 10/08/23 Range/Units 11:21 03:30 Sodium 140 141 (136-145) mmol/L Potassium 4.5 4.0 (3.5-5.1) mmol/L Chloride 108 H 106 (98-107) mmol/L Carbon Dioxide 28 30 (21-32) mmol/L BUN 12 12 (6-23) mg/dl Creatinine 0.50 L 0.59 L (0.6-1.2) mg/dl Glucose 92 83 (70-99(Fasting)) mg/dl Calcium 8.8 9.1 (8.6-10.3) mg/dl AST 21 (13-39) U/L ALT 14 (7-52) U/L Alkaline Phosphatase 67 (34-104) U/L Total Protein 6.7 (6.0-8.3) gm/dl Albumin 3.9 (3.4-5.0) gm/dl Intake and Output 10/07/23 10/08/23 10/08/23 22:59 06:59 14:59 Intake Total 300 / 600 300 / 600 Balance 300 / 600 300 / 600 Intake: Oral 300 / 600 300 / 600 Other: # Unmeasured Voids 1 Weight 133.81 kg 133.7 kg Weight Measurement Method Built in [facility] Built in [facility] Diagnostic Findings Telemetry with normal sinus rhythm, heart rate 70s EKG: NSR, 72 bpm
--- NOTE | 2023-10-08 11:55 | Electrocardiogram Report ---
Test Reason : Blood Pressure : / mmHG Vent. Rate : 072 BPM Atrial Rate : 072 BPM P-R Int : 124 ms QRS Dur : 092 ms QT Int : 394 ms P-R-T Axes : 035 056 036 degrees QTc Int : 431 ms Normal sinus rhythm Low voltage QRS Borderline ECG When compared with ECG of 07-OCT-2023 10:50, No significant change was found Confirmed by Clay Natarajan ([id number]) on 10/08/2023 11:55:12 AM Referred By: REFERRED SELF Confirmed By:Clay Natarajan
--- NOTE | 2023-10-08 13:51 | Hospitalist Progress Note ---
Date of Service October 08, 2023 Assessment & Plan (1) Precordial chest pain: Plan: Patient presenting for evaluation of chest pain and diaphoresis. Patient received 1 spray of nitroglycerin and route to the ED and reports resolution of her symptoms. Chest pain rule out ACS --CXR:Cardiomegaly with prominence of the pulmonary vasculature. No airspace consolidation or large pleural effusion is identified. Troponin negative EKG showed no signs of acute ischemia D-dimer within normal limits Lipid panel pending Echo pending Continue aspirin, statin, metoprolol Appreciate cardiology input (2) Primary malignant neoplasm of parotid gland: Plan: s/p resection No acute issues Morbid obesity BMI 50 DVT PROPHYLAXIS SQ Lovenox Admission and Anticipated Discharge Date Admission Date: October 07, 2023 Subjective Patient is seen and examined at bedside No new complaints today Chest pain resolved Denies any nausea, vomiting, dizziness, dyspnea Review of Systems Review of Systems: All systems reviewed & are unremarkable except as noted in Subjective Physical Exam Physical Exam: Physical Exam: Vitals signs as noted above General Appearance:Obese, no apparent distress Head: normocephalic, Atraumatic Eyes: normal inspection, EOMI Neck: supple, Trachea midline Respiratory/Chest: Normal breath sounds, CTA, No accessory muscle use Cardiovascular: S1, S2, No murmur Abdomen/GI:Soft, Non tender, Bowel sounds present Extremities/Musculoskeletal:normal inspection, Trace edema Neurologic/Psych:AAOX3, grossly no focal neurological deficits Skin: normal color, warm Results & Data Results & Data Vital Signs (Past 12 Hours) Vital Signs Temp Pulse Pulse Resp BP Pulse Ox O2 Del Method 10/08/23 11:21 36.3 C L 73 19 149/90 H 99 Room Air 10/08/23 07:31 36.4 C L 76 19 163/80 H 98 Room Air 10/08/23 05:50 72 10/08/23 03:22 36.5 C 73 20 118/80 95 Room Air Laboratory Results Short CBC 10/08/23 Range/Units 03:30 WBC 9.88 (4.8-10.8) K/ul Hgb 11.7 L (12.0-16.0) g/dl Hct 38.4 (37.0-47.0) % Plt Count 460 H (130-400) K/uL [facility] 10/08/23 03:30 Sodium 141 Potassium 4.0 Chloride 106 Carbon Dioxide 30 BUN 12 Creatinine 0.59 L Glucose 83 Calcium 9.1
[2023-10-09 07:11] LABS: Hematocrit (blood only) 37.7 % (37.0-47.0); Hemoglobin 11.5 g/dl (12.0-16.0); Mean Corpuscular Hemoglobin 25.7 pg (25.0-34.0); Mean Corpuscular Hgb Conc 30.5 g/dL (32.0-36.0); Mean Corpuscular Volume 84.2 fL (80.0-100.0); Mean Platelet Volume 9.1 fL (9.4-12.4); Platelet Count 434 K/uL (130-400); RDW Coefficient of Variation 15.3 % (11.5-14.5); RDW Standard Deviation 46.7 fL (36.4-46.3); Red Blood Count 4.48 M/uL (4.20-5.40); White Blood Count 8.17 K/ul (4.8-10.8)
[2023-10-09 07:50] LABS: BUN Creatinine Ratio 20.4 (10-20); Calcium 8.7 mg/dl (8.6-10.3); Creatinine Clr Calc Pharmacy 144.7 ml/min; Est GFR (African American) 116.4 ml/min; Est GFR (Non-African American) 100.4 ml/min; Potassium 4.2 mmol/L (3.5-5.1)
--- NOTE | 2023-10-09 10:20 | Cardiology Progress Note ---
Date of Service October 09, 2023 Assessment & Plan (1) Precordial chest pain: Plan 62 yo woman presents with nonexertional chest pain. Troponin negative. EKG without acute ischemic changes. - echo with normal LVEF, mild mitral regurgitation - plan for nuclear stress test tomorrow, unable to perform treadmill stress test due to bilateral knee pain - NPO after midnight - continue aspirin, atorvastatin, metoprolol - continue to monitor on telemetry Case discussed with supervising physician, further recommendations per Dr. Maddox. I spent a total of 30 minutes on the date of service in preparation, delivery, and documentation of the care provided to this patient excluding any time spent in the performance of separately billed services. This visit was a split-shared visit with the substantial portion of the decision making performed by the supervising university relations vice president/billing provider. Admission and Anticipated Discharge Date Admission Date: October 08, 2023 Supervising Physician Co-Signing Physician Notes I have personally performed a history and physical examination on the patient. I have reviewed the advance practitioner's documentation, and I agree with, and take responsibility for the plan of care. I spent a total of 35 minutes on the date of service in preparation, delivery, and documentation of the care provided to this patient, excluding any time spent in the performance of separately billed services. Subjective On evaluation today states she is feeling well. Was able to shower. Denies chest pain, palpitations, shortness of breath. Normal sinus rhythm on telemetry. Review of Systems Review of Systems: CONSTITUTIONAL: No change in weight, No weakness, No fatigue and No fevers, No sweats or chills. PULMONARY: No cough, sputum, or hemoptysis, No wheezing, No shortness of breath and No recent change in breathing. CARDIOVASCULAR: No chest pain, No dyspnea on exertion, No edema, No palpitations and No syncope. GASTROINTESTINAL: No abdominal pain, No change in bowel habits, No significant heartburn, No nausea, No vomiting, No diarrhea, No constipation, No blood in stools or black tarry stools. No dysphagia. HEMATOLOGIC: No abnormal bleeding and No bruising. NEUROLOGICAL: Normal balance, No headaches and No weakness. Physical Exam Physical Exam: General: No acute distress. A+Ox3. HEENT: Normocephalic. Atraumatic. PERRL. EOMI. Conjunctiva and sclera clear. NECK: No carotid bruits. No JVD. Carotid upstrokes are brisk. Heart: RRR. S1 and S2 noted. No murmur. No rubs or gallops. PMI non displaced. Lungs: Clear to auscultation. No wheezes. No rhonchi. No rales. Abdomen: Normal bowel sounds. Soft. Nontender. No masses or organomegaly. No abdominal bruits. Extremities: No edema. No clubbing or cyanosis. Pulses: radial=2/4, posterior tibial=2/4, dorsalis pedis = 2/4. NEURO: No focal deficits. PSYCH: Appropriate affect and insight. Results & Data Vital Signs (Past 12 Hours) Vital Signs Temp Pulse Resp BP Pulse Ox O2 Del Method 10/09/23 06:53 36.5 C 75 18 141/66 H 99 Room Air 10/09/23 03:15 36.6 C 71 18 142/88 H 97 Room Air 10/08/23 22:46 36.7 C 71 18 140/95 99 Room Air Laboratory Results Lipids 10/09/23 Range/Units 06:36 Triglycerides 107 (0-150) mg/dl Cholesterol 136 (0-200) mg/dl HDL Cholesterol 34 mg/dl Cholesterol/HDL Ratio 4.0 (0-5) CBC 10/09/23 Range/Units 06:36 WBC 8.17 (4.8-10.8) K/ul RBC 4.48 (4.20-5.40) M/uL Hgb 11.5 L (12.0-16.0) g/dl Hct 37.7 (37.0-47.0) % Plt Count 434 H (130-400) K/uL Comprehensive Metabolic Panel 10/09/23 Range/Units 06:36 Sodium 142 (136-145) mmol/L Potassium 4.2 (3.5-5.1) mmol/L Chloride 106 (98-107) mmol/L Carbon Dioxide 32 (21-32) mmol/L BUN 11 (6-23) mg/dl Creatinine 0.54 L (0.6-1.2) mg/dl Glucose 86 (70-99(Fasting)) mg/dl Calcium 8.7 (8.6-10.3) mg/dl Intake and Output 10/08/23 10/09/23 10/09/23 22:59 06:59 14:59 Intake Total 250 / 1240 200 / 1240 Balance 250 / 1237 200 / 1237 Intake: Oral 250 / 1240 200 / 1240 Other: # Unmeasured Voids 3 2 Weight 132.9 kg Weight Measurement Method Built in [facility]
--- NOTE | 2023-10-09 15:06 | Hospitalist Progress Note ---
Date of Service October 09, 2023 Assessment & Plan (1) Precordial chest pain: Plan: Patient presenting for evaluation of chest pain and diaphoresis. Patient received 1 spray of nitroglycerin and route to the ED and reports resolution of her symptoms. Chest pain rule out ACS --CXR:Cardiomegaly with prominence of the pulmonary vasculature. No airspace consolidation or large pleural effusion is identified. Troponin negative EKG showed no signs of acute ischemia D-dimer within normal limits Lipid panel within normal limits Echo: EF 60 to 65%. Right ventricle systolic function is normal. Right ventricle cavity size is normal. Mild mitral regurgitation. No wall motion abnormality. Continue aspirin, statin, metoprolol Appreciate cardiology input N.p.o. after midnight for stress test tomorrow (2) Primary malignant neoplasm of parotid gland: Plan: s/p resection No acute issues Morbid obesity BMI 50 DVT PROPHYLAXIS SQ Lovenox Admission and Anticipated Discharge Date Admission Date: October 08, 2023 Subjective Patient is seen and examined at bedside States feeling well today No recurrence of chest pain Offers no complaints currently Discussed with cardiology today Denies any nausea, vomiting, dizziness, dyspnea Review of Systems Review of Systems: All systems reviewed & are unremarkable except as noted in Subjective Physical Exam Physical Exam: Physical Exam: Vitals signs as noted above General Appearance:Obese, no apparent distress Head: normocephalic, Atraumatic Eyes: normal inspection, EOMI Neck: supple, Trachea midline Respiratory/Chest: Normal breath sounds, CTA, No accessory muscle use Cardiovascular: S1, S2, No murmur Abdomen/GI:Soft, Non tender, Bowel sounds present Extremities/Musculoskeletal:normal inspection, Trace edema Neurologic/Psych:AAOX3, grossly no focal neurological deficits Skin: normal color, warm Results & Data Results & Data Vital Signs (Past 12 Hours) Vital Signs Temp Pulse Pulse Resp BP Pulse Ox O2 Del Method 10/09/23 13:21 Room Air 10/09/23 10:42 36.7 C 71 18 125/85 95 Room Air 10/09/23 07:00 67 10/09/23 06:53 36.5 C 75 18 141/66 H 99 Room Air 10/09/23 03:15 36.6 C 71 18 142/88 H 97 Room Air Laboratory Results Short CBC 10/09/23 Range/Units 06:36 WBC 8.17 (4.8-10.8) K/ul Hgb 11.5 L (12.0-16.0) g/dl Hct 37.7 (37.0-47.0) % Plt Count 434 H (130-400) K/uL [facility] 10/09/23 06:36 Sodium 142 Potassium 4.2 Chloride 106 Carbon Dioxide 32 BUN 11 Creatinine 0.54 L Glucose 86 Calcium 8.7
[2023-10-10] MEDS: DOBUTamine HCL 12.5 MG/ML 20 ML VIAL IV ONE (10:32)
[2023-10-10] MEDS: ATROPINE SULFATE 0.1 MG/ML 10ML SYR IV ONE (10:32)
[2023-10-10] MEDS: METOPROLOL TARTRATE 1 MG/ML VIAL IV ONE (10:33)
[2023-10-10] MEDS: NITROGLYCERIN SL 0.4 MG/TAB TAB ONE (10:33)
[2023-10-10] MEDS: PERFLUTREN LIPID MICROSPHERE (DEFINITY) IV ONE (10:35)
--- NOTE | 2023-10-10 10:42 | Cardiology Progress Note ---
Date of Service October 10, 2023 Assessment & Plan (1) Precordial chest pain: Plan: Dobutamine stress echocardiogram is negative for ischemia. No symptoms suggestive angina were observed. Will discontinue aspirin 81 mg daily. Discontinue metoprolol. Lipid panel performed during this hospital stay notable for a total cholesterol 136, triglycerides 107, LDL 81, HDL 34. This reflects lipid levels prior to his statin therapy, and will therefore discontinue atorvastatin. (2) Elevated blood pressure reading: Plan: Patient with multiple blood pressures that were above goal during hospital stay. Potassium and kidney function stable. Recommend discharge on losartan 25 mg daily, first dose 10/11/2023. Follow-up with PCP. Disposition: Stable for discharge from a cardiology perspective. Admission and Anticipated Discharge Date Admission Date: October 08, 2023 Subjective Patient seen in cardiology follow-up prior to, during, and after dobutamine stress echocardiogram. Patient without recurrent chest discomfort overnight last night or thus far today. Telemetry revealed sinus rhythm in the 70s. Physical Exam Constitutional: WD/WN, vitals as above Eyes: PERRL, conjunctivae normal, anicteric sclerae Respiratory: normal respiratory effort, lungs clear to auscultation Cardiovascular: RRR, no murmur, no edema Gastrointestinal (Abdomen): normal bowel sounds, soft, nontender, no hepatosplenomegaly Neurologic: PERRL, EOMI, accommodation nl, no face palsy, no dysarthria Results & Data Vital Signs (Past 12 Hours) Vital Signs Temp Pulse Pulse Resp BP Pulse Ox O2 Del Method 10/10/23 07:43 72 10/10/23 07:21 36.5 C 79 18 165/86 H 96 Room Air 10/10/23 03:12 36.9 C 72 18 144/81 H 96 Room Air 10/09/23 23:22 36.7 C 67 18 136/81 98 Room Air Laboratory Results Intake and Output 10/09/23 10/10/23 10/10/23 22:59 06:59 14:59 Intake Total 650 / 1400 0 / 1400 Balance 650 / 1399 0 / 1399 Intake: Oral 650 / 1400 0 / 1400 Other: # Unmeasured Voids 2 2 Weight 133.2 kg Weight Measurement Method Built in [facility] Diagnostic Findings EKG performed 10/09/2023 at 6:08 AM and reviewed independently: Sinus rhythm at 75 bpm, normal EKG, unchanged compared to 10/08/2023.
--- NOTE | 2023-10-10 12:27 | Electrocardiogram Report ---
Test Reason : Blood Pressure : / mmHG Vent. Rate : 075 BPM Atrial Rate : 075 BPM P-R Int : 124 ms QRS Dur : 090 ms QT Int : 388 ms P-R-T Axes : 026 052 036 degrees QTc Int : 433 ms Normal sinus rhythm Normal ECG When compared with ECG of 08-OCT-2023 06:05, No significant change was found Confirmed by Clay Natarajan ([id number]) on 10/10/2023 12:26:31 PM Referred By: REFERRED SELF Confirmed By:Clay Natarajan
--- NOTE | 2023-10-10 12:45 | Hospitalist Progress Note ---
Date of Service October 10, 2023 Assessment & Plan (1) Precordial chest pain: Plan: Patient presenting for evaluation of chest pain and diaphoresis. Patient received 1 spray of nitroglycerin and route to the ED and reports resolution of her symptoms. Chest pain rule out ACS --CXR:Cardiomegaly with prominence of the pulmonary vasculature. No airspace consolidation or large pleural effusion is identified. Troponin negative EKG showed no signs of acute ischemia D-dimer within normal limits Lipid panel within normal limits Echo: EF 60 to 65%. Right ventricle systolic function is normal. Right ventricle cavity size is normal. Mild mitral regurgitation. No wall motion abnormality. -- Dobutamine stress test: No echo cardiogenic or EKG evidence of myocardial ischemia having achieved heart rate adequate for diagnostic purposes. No s ymptoms suggestive of angina reported. 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 No acute issues Morbid obesity BMI 50 DVT PROPHYLAXIS SQ Lovenox Disposition Home Admission and Anticipated Discharge Date Admission Date: October 08, 2023 Subjective Patient is seen and examined at bedside Had stress test earlier today Subjectively feels well Offers no new complaints today Discussed with cardiology today Denies any chest pain, nausea, vomiting, dizziness, dyspnea Plan to be discharged home today Review of Systems Review of Systems: All systems reviewed & are unremarkable except as noted in Subjective Physical Exam Physical Exam: Physical Exam: Vitals signs as noted above General Appearance:Obese, no apparent distress Head: normocephalic, Atraumatic Eyes: normal inspection, EOMI Neck: supple, Trachea midline Respiratory/Chest: Normal breath sounds, CTA, No accessory muscle use Cardiovascular: S1, S2, No murmur Abdomen/GI:Soft, Non tender, Bowel sounds present Extremities/Musculoskeletal:normal inspection, Trace edema Neurologic/Psych:AAOX3, grossly no focal neurological deficits Skin: normal color, warm Results & Data Results & Data Vital Signs (Past 12 Hours) Vital Signs Temp Pulse Pulse Resp BP Pulse Ox O2 Del Method 10/10/23 11:20 36.5 C 71 18 142/81 H 98 Room Air 10/10/23 07:43 72 10/10/23 07:21 36.5 C 79 18 165/86 H 96 Room Air 10/10/23 03:12 36.9 C 72 18 144/81 H 96 Room Air
--- NOTE | 2023-10-10 13:00 | Discharge Summary ---
Date of Service October 10, 2023 Admission HPI Per Admitting Provider 62-year-old female with PMH obesity, osteoarthritis, primary malignant neoplasm of parotid gland s/p resection, and other problems listed below who presents to the ED for evaluation of chest pain. History is obtained from the patient and review outpatient PCP records. Patient states that she was driving in her car earlier today whenever she developed a midsternal chest pain. Patient describes the feeling as a "bubble" in her chest that would not go away. She reports associated diaphoresis. When patient reached her location and parked her car, she reports that the pain had mostly subsided. She then got out of her car and was getting her chair out of the trunk when the pain returned. 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 When she arrived at the EMT tent, her coworkers noted that she did not look well. She was transported to the ED via ambulance. En route to the ED, patient received 4 baby aspirin and 1 spray of nitroglycerin. Patient states that the nitroglycerin resolved her pain. She reports a few minor episodes of chest discomfort since arriving to the ED but is currently chest pain-free. She denies associated shortness of breath or nausea. States she otherwise has been feeling well recently. No other recent illnesses, fevers, chills. She denies abdominal pain, vomiting, diarrhea. No urinary symptoms. In the ED, patient is hemodynamically stable. HS troponin ne gative x 2, EKG without acute ST changes. 1 inch of nitroglycerin paste was placed. Admission Exam Per Admitting Provider Constitutional: WD/WN, vitals as above + obese; no acute distress Eyes: PERRL, conjunctivae normal, anicteric sclerae ENMT: external ear and nose normal, oropharynx normal Respiratory: normal respiratory effort, lungs clear to auscultation Cardiovascular: Rate/Rhythm: regular rate and regular rhythm Vessels: normal peripheral pulses Extremities: + edema (+1 edema BLE) Gastrointestinal (Abdomen): normal bowel sounds, soft, nontender, no hepatosplenomegaly Musculoskeletal: no cyanosis or clubbing, extremities motor strength 5/5 Skin: no rashes, warm and dry Neurologic: PERRL, EOMI, accommodation nl, no face palsy, no dysarthria Psychiatric: A+Ox3, euthymic affect Principal Diagnosis Chest pain Hypertension Discharge Data Allergies Allergy/AdvReac Type Severity Reaction Status Date / Time Iodinated Contrast Media Allergy Intermediate HIVES AND Verified 10/07/23 12:53 SWELLING Consultations 10/07/23 15:54 ED Decision to Admit Stat 10/07/23 17:45 Consult Cardiology Routine Procedures Performed Laboratory Results WBC 8.17 K/ul (4.8-10.8) 10/09/23 06:36 RBC 4.48 M/uL (4.20-5.40) 10/09/23 06:36 Hgb 11.5 g/dl (12.0-16.0) L 10/09/23 06:36 Hct 37.7 % (37.0-47.0) 10/09/23 06:36 MCV 84.2 fL (80.0-100.0) 10/09/23 06:36 MCH 25.7 pg (25.0-34.0) 10/09/23 06:36 MCHC 30.5 g/dL (32.0-36.0) L 10/09/23 06:36 RDW Std Deviation 46.7 fL (36.4-46.3) H 10/09/23 06:36 RDW Coeff of Price 15.3 % (11.5-14.5) H 10/09/23 06:36 Plt Count 434 K/uL (130-400) H 10/09/23 06:36 MPV 9.1 fL (9.4-12.4) L 10/09/23 06:36 Immature Gran % (Auto) 0.3 % 10/07/23 11:21 Neut % (Auto) 79.1 % 10/07/23 11:21 Lymph % (Auto) 10.8 % 10/07/23 11:21 [place] % (Auto) 6.3 % 10/07/23 11:21 Eos % (Auto) 2.7 % 10/07/23 11:21 Baso % (Auto) 0.8 % 10/07/23 11:21 Neut # (Auto) 9.69 K/uL (1.40-6.50) H 10/07/23 11:21 Lymph # (Auto) 1.32 K/uL (1.20-3.40) 10/07/23 11:21 [place] # (Auto) 0.77 K/uL (0.11-0.59) H 10/07/23 11:21 Eos # (Auto) 0.33 K/uL (0.00-0.50) 10/07/23 11:21 Baso # (Auto) 0.10 K/uL (0.00-0.20) 10/07/23 11:21 Immature Gran # (Auto) 0.04 K/uL (0.01-0.20) 10/07/23 11:21 PT 10.3 Seconds (9.0-12.0) 10/07/23 11:21 INR 0.9 (0.9-1.1) 10/07/23 11:21 APTT 26 Seconds (21-31) 10/07/23 11:21 PTT Ratio 1.0 10/07/23 11:21 D-Dimer 410 ug/L FEU (0-500) 10/07/23 17:24 Sodium 142 mmol/L (136-145) 10/09/23 06:36 Potassium 4.2 mmol/L (3.5-5.1) 10/09/23 06:36 Chloride 106 mmol/L (98-107) 10/09/23 06:36 Carbon Dioxide 32 mmol/L (21-32) 10/09/23 06:36 Anion Gap 4 (3-11) 10/09/23 06:36 BUN 11 mg/dl (6-23) 10/09/23 06:36 Creatinine 0.54 mg/dl (0.6-1.2) L 10/09/23 06:36 Est Cr Clr Drug Dosing 144.7 ml/min 10/09/23 06:36 Est GFR ( Amer) 116.4 ml/min 10/09/23 06:36 Est GFR (Non-Af Amer) 100.4 ml/min 10/09/23 06:36 BUN/Creatinine Ratio 20.4 (10-20) H 10/09/23 06:36 Glucose 86 mg/dl (70-99(Fasting)) 10/09/23 06:36 Calcium 8.7 mg/dl (8.6-10.3) 10/09/23 06:36 Magnesium 1.9 mg/dl (1.7-2.4) 10/07/23 11:21 Total Bilirubin 0.4 mg/dl (0.2-1.0) 10/07/23 11:21 AST 21 U/L (13-39) 10/07/23 11:21 ALT 14 U/L (7-52) 10/07/23 11:21 Alkaline Phosphatase 67 U/L (34-104) 10/07/23 11:21 Troponin I High Sens 2.9 pg/ml (0-14) 10/08/23 03:30 Total Protein 6.7 gm/dl (6.0-8.3) 10/07/23 11:21 Albumin 3.9 gm/dl (3.4-5.0) 10/07/23 11:21 Globulin 2.8 gm/dl (2.5-4.0) 10/07/23 11:21 Albumin/Globulin Ratio 1.4 (0.9-2) 10/07/23 11:21 Triglycerides 107 mg/dl (0-150) 10/09/23 06:36 Cholesterol 136 mg/dl (0-200) 10/09/23 06:36 LDL Cholesterol, Calc 81 mg/dl 10/09/23 06:36 VLDL Cholesterol, Calc 21 mg/dl (0-30) 10/09/23 06:36 HDL Cholesterol 34 mg/dl 10/09/23 06:36 Cholesterol/HDL Ratio 4.0 (0-5) 10/09/23 06:36 Lipase 9 U/L (11-82) L 10/07/23 11:21 Impressions Chest X-Ray 10/07/23 10:41 SINGLE VIEW CHEST CLINICAL HISTORY: Atypical chest pain. FINDINGS: An AP, portable, upright chest radiograph is compared to study dated 08/21/2011 and correlated with chest CT dated 08/22/2011. The heart is enlarged. There is prominence of the pulmonary vasculature. Atelectasis is seen at the lung bases. The lungs and pleural spaces are otherwise clear. No pneumothorax is seen. The skeletal structures are osteopenic. The bony thorax is grossly intact. IMPRESSION: 1. Cardiomegaly with prominence of the pulmonary vasculature. Correlate clinically for evidence of fluid overload/congestive change. 2. No airspace consolidation or large pleural effusion is identified. ACT 112: Negative or not required by law. Electronically signed by: Kip Pearl M.D. 10/07/2023 11:05 AM Hospital Course (1) Precordial chest pain: Patient presenting for evaluation of chest pain and diaphoresis. Patient received 1 spray of nitroglycerin and route to the ED and reports resolution of her symptoms. Chest pain rule out ACS --CXR:Cardiomegaly with prominence of the pulmonary vasculature. No airspace consolidation or large pleural effusion is identified. Troponin negative EKG showed no signs of acute ischemia D-dimer within normal limits Lipid panel within normal limits Echo: EF 60 to 65%. Right ventricle systolic function is normal. Right ventricle cavity size is normal. Mild mitral regurgitation. No wall motion abnormality. -- Dobutamine stress test: No echo cardiogenic or EKG evidence of myocardial ischemia having achieved heart rate adequate for diagnostic purposes. No symptoms suggestive of angina reported. Appreciate cardiology input Discontinue aspirin, metoprolol, Lipitor Likely related to elevated blood pressure Hypertension Started on losartan 25 mg daily Advised to follow-up with PCP for further management (2) Primary malignant neoplasm of parotid gland: s/p resection No acute issues Morbid obesity BMI 50 DVT PROPHYLAXIS SQ Lovenox Disposition Home Total Time Total Time Spent Total Time Spent (In Minutes): 56 minutes Discharge Plan Discharge Items Patient Disposition: Home - Self-Care Reason For Visit: CHEST PAIN Discharge Diagnosis: Chest pain Hypertension Condition on Discharge: Good Activity: Per Instructions section Exercise/Sports: Wait until after follow-up appointment Non-emergency contact: Primary Care Provider Call non-emergency contact if: you have any medication questions, your symptoms worsen, your pain is concerning for you and you have a fever Follow-up/Referrals: Gregorio Montoya MD [Primary Care Provider] - (Date & Time 10/18/2023 1:40 PM Provider Gregorio Montoya MD [facility] ) Diet: Heart Healthy Addtl Attending Provider Instructions: Follow-up with your primary care physician Dr. 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 Discuss with your physician for further adjustment of your blood pressure medications as needed Seek immediate medical attention if your symptoms reoccur or worsen Please take all medications as instructed on discharge list below. Please call if you have any questions or problems. You can reach a [facility] hospitalist on duty at [facility] 24 hours a day by calling [phone] Pending Studies at Discharge: No Stand-Alone Forms: [employer] [facility], Smoking Cessation Medications and DC Order Prescriptions: New losartan 25 mg Tablet 25 mg PO QAM Qty: 30 1RF Continued valacyclovir [Valtrex] 1 gram Tablet 2,000 mg PO Q12H PRN (Reason: Cold Sores) acyclovir 5 % Ointment 1 dose Topical DIRECTED PRN (Reason: Cold Sores) Women's One Daily 18 mg iron-400 mcg-500 mg Ca Tablet 1 tab PO QAM silver sulfadiazine 1 % cream 1 applic TOPICAL DAILY PRN (Reason: Skin Irritation) potassium chloride 10 mEq Tablet Extended Release 10 meq PO DAILY PRN (Reason: with Lasix) furosemide 20 mg tablet 40 mg PO DAILY PRN (Reason: Edema) Discharge Orders: Discharge Order (Routine); Ordered 10/10/23 Ordered By: Caden Epperson Admission Data Admit Date/Time: 10/08/23 14:23 Attending Provider: Caden Epperson Admit Provider: Minh Dominguez Primary Care Provider: Gregorio Montoya Other Providers: Minh Dominguez; Bright Alvarado
[2023-10-11] MEDS ORDERED: LOSARTAN POTASSIUM 25 MG TAB PO SCH (09:00)
== END 2023-10-10 15:26 | disposition home or self-care (01) | DRG 313 ==
LOC: 2S 10:37 → ED 10:37 → SUATTDRO 15:57 → 2S 17:17